=== PATIENT | female | born 1980 | race African-American/Black ===

== ENCOUNTER 2018-11-03 10:59 | Emergency (ER) | payer OTHER ==
[2018-11-03 11:04] VITALS: BMI 34.2
[2018-11-03] MEDS ORDERED: ACETAMINOPHEN 1000 MG/100 ML VIAL (NON FORMULARY) IVPB ONE (12:24)
[2018-11-03] MEDS ORDERED: ACETAMINOPHEN INJECTION 100 ML IVPB ONE (12:31)
[2018-11-03 12:55] LABS: BASO % 0.8 % (0-2.0); HEMATOCRIT 39.7 % (32.4-45.2); HEMOGLOBIN 13.2 GM/dL (10.7-15.3); LYMPH % 43.9 % (8-40); MCH 29.6 pg (25.7-33.7); MCHC 33.2 g/dl (32.0-36.0); MEAN CELL VOLUME 89.2 fl (80-96); MEAN PLT VOLUME 7.6 fl (7.5-11.1); MONO % 11.5 % (3.8-10.2); NEUT % 39.8 % (42.8-82.8); PLATELET COUNT 297 K/MM3 (134-434); RBC 4.45 M/mm3 (3.60-5.2); RDW 14.3 % (11.6-15.6); WHITE BLOOD COUNT 6.1 K/mm3 (4.0-10.0)
[2018-11-03 13:16] LABS: EPI CELLS 7.2 /HPF (0-5/HPF); HYALINE CASTS 0 /lpf (0-8); PH,URINE >= 9.0 (5.0-8.0); URINE APPEARANCE CLEAR; URINE BACTERIA 193.4 /hpf (NEGATIVE); URINE BILIRUBIN NEGATIVE (NEGATIVE); URINE COLOR YELLOW; URINE GLUCOSE (UA) NEGATIVE (NEGATIVE); URINE KETONE NEGATIVE (NEGATIVE); URINE LEUK ESTERASE 2+ (NEGATIVE); URINE NITRITE NEGATIVE (NEGATIVE); URINE PROTEIN NEGATIVE (NEGATIVE); URINE RBC 1 /hpf (0-4); URINE UROBILINOGEN 0.2 mg/dL (0.2-1.0); URINE WBC 4 /hpf (0-5)
[2018-11-03 13:24] LABS: ALBUMIN 3.7 g/dl (3.4-5.0); BILIRUBIN,TOTAL 0.4 mg/dL (0.2-1); BLOOD UREA NITROGEN 12.4 mg/dL (7-18); CALCIUM 8.7 mg/dL (8.5-10.1); CREATININE 0.7 mg/dL (0.55-1.3); POTASSIUM 4.3 mmol/L (3.5-5.1); TOT PROT 7.2 g/dl (6.4-8.2)
[2018-11-03 13:25] LABS: MAGNESIUM 2.6 mg/dL (1.8-2.4)
--- NOTE | 2018-11-03 13:56 | PDOC ---
Documentation entered by Georgina Baird SCRIBE, acting as scribe for Nikkie Arias MD. Nikkie Arias MD: This documentation has been prepared by the Oli monroe Xhesika, SCRIBE, under my direction and personally reviewed by me in its entirety. I confirm that the documentation accurately reflects all work, treatment, procedures, and medical decision making performed by me. History of Present Illness - General Chief Complaint: Blood Pressure Problem Stated Complaint: HEADACHE History Source: Patient Exam Limitations: No Limitations - History of Present Illness Initial Comments: 11/03/18 12:28 The patient is a 37 year old female, with a significant past medical history of asthma and anemia (only while 3yrs ago) who presents to the ED with headache and chest pressure since this morning. The patient describes her headache as a gradual onset, pressure like, tingling sensation at the top of her head. She states she woke up with the headache this morning and states in addition to the chest pressure, she has had similar headaches and chest pressure on and off for many months, possibly more than a year. She reports the chest pressure is not exertional and occurs at rest and while walking. Patient states she has been having high blood pressure for the past 3 years since her son was born. Patient saw her PRODUCTION WEIGHER on Thursday and her BP was 165/105. Her OB- ANTIQUE DEALER told her she could have a stroke and this is what prompted her to come in to the ED today when she had some time. She notes a similar blood pressure read every time she has a physical at Dr. Van's office for the last 3 years but has not been started on BP meds as she had been advised to "watch and wait." The patient notes she has a family history of HTN in both parents. Patient notes she recently drove back from [place] and noticed that the tops of her feet were swollen, but this improved when she elevated her legs and is not present currently. The patient denies shortness of breath. Denies visual sxs, focal weakness/ numbness. Denies fever, chills, cough, nausea, vomiting, diarrhea and constipation. Denies dysuria, frequency, urgency and hematuria. Allergies: penicillins, late, melon, shellfish derived, natural rubber PCP: Dr. Van Past History - Past Medical History Allergies/Adverse Reactions: Allergies Allergy/AdvReac Type Severity Reaction Status Date / Time melon Allergy Itching Verified 11/03/18 11:04 Penicillins Allergy Hives Verified 11/03/18 11:04 shellfish derived Allergy Hives Verified 11/03/18 11:04 Latex, Natural Rubber AdvReac Intermediate Verified 11/03/18 11:04 Home Medications: Ambulatory Orders Vit/Iron Fum/Folic AC [ Tablet] 1 each PO DAILY 05/27/15 Asthma: No Cancer: No Cardiac Disorders: No COPD: No Diabetes: No HTN: No Seizures: No Thyroid Disease: No - Suicide/Smoking/Psychosocial Hx Smoking History: Never smoked Hx Alcohol Use: No Drug/Substance Use Hx: No Substance Use Type: None Hx Substance Use Treatment: No Review of Systems - Review of Systems Able to Perform ROS?: Yes Comments:: 11/03/18 12:29 GENERAL/CONSTITUTIONAL: No fever or chills. No weakness. HEAD, EYES, EARS, NOSE AND THROAT: No change in vision. No ear pain or discharge. No sore throat. GASTROINTESTINAL: No nausea, vomiting, diarrhea or constipation. GENITOURINARY: No dysuria, frequency, or change in urination. CARDIOVASCULAR: (+) chest pressure. No shortness of breath. RESPIRATORY: No cough, wheezing, or hemoptysis. MUSCULOSKELETAL: No joint or muscle swelling or pain. No neck or back pain. SKIN: No rash NEUROLOGIC: (+) headache. (+) dizziness. No vertigo, loss of consciousness, or change in strength/sensation. ENDOCRINE: No increased thirst. No abnormal weight change. HEMATOLOGIC/LYMPHATIC: No anemia, easy bleeding, or history of blood clots. ALLERGIC/IMMUNOLOGIC: No hives or skin allergy. *Physical Exam - Vital Signs Last Vital Signs Temp Pulse Resp BP Pulse Ox 98.3 F 102 H 20 157/115 H 99 11/03/18 11:00 11/03/18 11:00 11/03/18 11:00 11/03/18 11:00 11/03/18 11:00 - Physical Exam Comments: 11/03/18 12:30 GENERAL: Awake, alert, and fully oriented, in no acute distress HEAD: No signs of trauma EYES: PERRLA, EOMI, sclera anicteric, conjunctiva clear ENT: Auricles normal inspection, hearing grossly normal, nares patent, oropharynx clear without exudates. Moist mucosa NECK: Normal ROM, supple, no lymphadenopathy, JVD, or masses LUNGS: Breath sounds equal, clear to auscultation bilaterally. No wheezes, and no crackles HEART: Regular rate and rhythm, normal S1 and S2, no murmurs, rubs or gallops ABDOMEN: Soft, nontender, normoactive bowel sounds. No guarding, no rebound. No masses EXTREMITIES: Normal range of motion, no edema. No clubbing or cyanosis. No cords , erythema, or tenderness BACK: No midline spinal tenderness in cervical/thoracic/lumbar region NEUROLOGICAL: Normal speech, cranial nerves intact, negative pronator drift, 5/ 5 strength in all 4 extremities, normal sensation to light touch in all 4 extremities, normal cerebellar exam, normal gait, normal reflexes and tone SKIN: Warm, Dry, normal turgor, no rashes or lesions noted. Heart Score/ECG Review - History History: Slightly suspicious - Electrocardiogram EKG: Normal - Age Age: </= 45 - Risk Factors Based on the list above the patient has:: 1-2 risk factors - Troponin Troponin: </= normal limit - Score Heart Score - Total: 1 #1 11/03/18 13:52 Twelve-lead EKG was performed and reviewed by me. Normal sinus rhythm, rate 93. Normal axis and intervals. No ST elevations or T-wave inversions. ED Treatment Course - LABORATORY CBC & Chemistry Diagram: 11/03/18 12:33 11/03/18 12:33 - Medications Given in the ED: ED Medications Discontinued Medications Generic Name Dose Route Start Last Admin Trade Name Kely PRN Reason Stop Dose Admin Acetaminophen 1,000 mg 11/03/18 12:24 11/03/18 12:51 Ofirmev Injection - IVPB 11/03/18 12:25 1,000 mg ONCE ONE Administration Medical Decision Making - Medical Decision Making 11/03/18 13:53 37yo F presents to the ED with elevated BP as well as headache and chest pressure intermittently BP is elevated, similar to pt's reported values from previous healthcare visits. Exam wnl, EKG is non ischemic Likely hypertensive urgency, however, will obtain labs, UA, EKG, CTH to r/o end- organ damage Heart score is low as pt has minimal risk factors and denies family hx of cardiac disease. 11/03/18 17:54 All labs including trop x2 negative CTH negative BP improved w/o intervention to 132/90 while pt was sleeping, however still likely has essential hypertension Case discussed with Dr. Carlin from cardiology who reviewed her labs, EKG Plan to start pt on HCTZ 25mg daily and pt will f/u with Dr. Carlin within 1 week She will use a BP machine to check her BP before she starts the HCTZ tomorrow morning to make sure it is not <130s systolic She no longer has chest pressure or a headache and feels better She has f/u with her PMD on 11/09 as well I discussed the physical exam findings, ancillary test results and final diagnoses with the patient. I answered all of the patient's questions. The patient was satisfied with the care received and felt comfortable with the discharge plan and treatment plan. The patient will call their primary care physician within 24 hours to arrange follow-up and will return to the Emergency Department with any new, persistent or worsening symptoms. *DC/Admit/Observation/Transfer Diagnosis at time of Disposition: Hypertensive urgency - Discharge Dispostion Disposition: HOME Condition at time of disposition: Improved Decision to Admit order: No - Referrals Referrals: Nadia Purdy MD [Primary Care Provider] - - Patient Instructions Printed Discharge Instructions: DI for High Blood Pressure, How to Monitor Your Blood Pressure at Home Additional Instructions: Follow up with Dr. Van as scheduled on 11/09 to discuss this visit. Follow up with Dr. Carlin (cardiology) within 1 week to discuss this visit. Dr. Carlin and I discussed your case while you were in the emergency department. A referral is included in this packet. Take the hydrochlorothiazide 25mg in the morning daily but check your blood pressure first. As discussed, do not take the medication if the top number of your blood pressure is less than 130. Return to the emergency department if you have any new, worsening, or concerning symptoms. - Post Discharge Activity - Attestations Physician Attestion: 11/03/18 18:15 I, Dr. Nikkie Arias MD, attest that this document has been prepared under my direction and personally reviewed by me in its entirety. I further attest, that it accurately reflects all work, treatment, procedures and medical decision -making performed by me.
--- NOTE | 2018-11-03 14:22 | EKG ---
Test Reason : Blood Pressure : / mmHG Vent. Rate : 093 BPM Atrial Rate : 093 BPM P-R Int : 176 ms QRS Dur : 082 ms QT Int : 358 ms P-R-T Axes : 057 025 035 degrees QTc Int : 445 ms NORMAL SINUS RHYTHM POSSIBLE LEFT ATRIAL ENLARGEMENT BORDERLINE ECG NO PREVIOUS ECGS AVAILABLE Confirmed by IBIS DOMINGO, MITCHELL ([id number]) on 11/03/2018 2:22:11 PM Referred By: Confirmed By:MITCHELL BAUMANN MD
[2018-11-03] MEDS ORDERED: HYDROCHLOROTHIAZIDE 25 MG TABLET (FP) PO ONE ×2 (16:02→18:33)
[2018-11-03] MEDS ORDERED: HYDROCHLOROTHIAZIDE 25 MG TABLET (FP) ONE ×3 (16:20→18:39)
[2018-11-03 16:25] VITALS: TEMP 98
[2018-11-03] MEDS ORDERED: METOCLOPRAMIDE HCL INJECTION 10 MG/2 ML VIAL IVPB ONE (16:29)
[2018-11-03] MEDS ORDERED: METOCLOPRAMIDE HCL INJECTION 10 MG/2 ML VIAL ONE (16:43)
[2018-11-03 18:42] VITALS: BP 157/108; PULSE 87
== END 2018-11-03 18:42 | disposition home or self-care (01) ==
LOC: JER 10:59
PROC: 3E033NZ Introduction of Analgesics, Hypnotics, Sedatives into Peripheral Vein, Percutaneous Approach (ICD-10-PCS; principal; 2018-11-03)
PROC: 3E033GC Introduction of Other Therapeutic Substance into Peripheral Vein, Percutaneous Approach (ICD-10-PCS; 2018-11-03)
DX: I16.0 Hypertensive urgency (principal)
CPT/HCPCS: 36415; 70450-TC; 71045-TC-FY; 80053; 81003; 83735; 84484; 84703; 85025; 93005; 93010; 96374; 96375; 99283-25; J0131

== ENCOUNTER 2019-10-05 07:19 | Inpatient (IN) | payer OTHER ==
--- NOTE | 2019-10-05 07:35 | PDOC ---
Rapid Medical Evaluation Chief Complaint: Edema Time Seen by Provider: 10/05/19 07:25 Medical Evaluation: Allergies Allergy/AdvReac Type Severity Reaction Status Date / Time melon Allergy Itching Verified 10/05/19 07:25 Penicillins Allergy Hives Verified 10/05/19 07:25 shellfish derived Allergy Hives Verified 10/05/19 07:25 Latex, Natural Rubber AdvReac Intermediate Verified 10/05/19 07:25 Vital Signs Temp Pulse Resp BP Pulse Ox 98.7 F 101 H 18 123/82 98 10/05/19 07:22 10/05/19 07:22 10/05/19 07:22 10/05/19 07:22 10/05/19 07:22 10/05/19 07:25 The patient presents to the ER for facial swelling after a tooth extraction on Thursday. States she has difficulty swallowing and increased pain on the right side. She states she had her upper and lower wisdom teeth removed. Exam: abscess present to the R upper incision site Orders: defer to provider Pt to proceed to the ER for further evaluation Discharge Disposition - Diagnosis Facial swelling - Referrals Referrals: Fercho Toussaint MD [Primary Care Provider] - - Patient Instructions - Post Discharge Activity
[2019-10-05] MEDS ORDERED: HYDROmorphone HCL CARPU-JECT 2 MG/1 ML DISP.SYRIN IVPB ONE ×2 (08:11→10:37)
[2019-10-05] MEDS ORDERED: SODIUM CHLORIDE 1,000 ML IV STA (08:12)
[2019-10-05] MEDS ORDERED: HYDROmorphone HCl 2 MG/ML VIAL ONE ×2 (08:34→10:38)
--- NOTE | 2019-10-05 08:48 | PDOC ---
Documentation entered by Carmina Espinosa SCRIBE, acting as scribe for Praveen Dickerson MD. Praveen Dickerson MD: This documentation has been prepared by the Francisca monroe Brenda, SCRIBE, under my direction and personally reviewed by me in its entirety. I confirm that the documentation accurately reflects all work, treatment, procedures, and medical decision making performed by me. History of Present Illness - General Chief Complaint: Edema Stated Complaint: FACE SWELLING Time Seen by Provider: 10/05/19 07:25 History Source: Patient Exam Limitations: No Limitations - History of Present Illness Initial Comments: 10/05/19 08:10 The patient is a 38 year old female with a significant PMH of HTN (on amlodipine) and acid reflux who presents to the emergency department for evaluation of increased right facial swelling and pain s/p upper and lower tooth extraction on 10/03/19. Patient reports that she is unable to swallow without severe pain, notes is taking ibprofuen to no relief. Also reports ear pain. She also endorses feeling warm recently but is unaware of fever. Patient notes having teeth extractions done on the left side, and notes she was fine after 3 days. The patient denies chest pain, shortness of breath, headache and dizziness. Denies fever, chills, nausea, vomiting, diarrhea and constipation. Denies dysuria, frequency, urgency and hematuria. Allergies: Penicillins Past surgical history: [facility] [place] teeth extractions Social history: No reported hx of tobacco use, alcohol use or illicit drug use. Past History - Medical History Allergies/Adverse Reactions: Allergies Allergy/AdvReac Type Severity Reaction Status Date / Time melon Allergy Itching Verified 10/05/19 07:25 Penicillins Allergy Hives Verified 10/05/19 07:25 shellfish derived Allergy Hives Verified 10/05/19 07:25 Latex, Natural Rubber AdvReac Intermediate Verified 10/05/19 07:25 Home Medications: Ambulatory Orders Albuterol Sulfate Inhaler - [Ventolin Hfa Inhaler -] 1 - 2 inh PO QID PRN 10/05/19 Amlodipine Besylate [Norvasc -] 5 mg PO DAILY 10/05/19 Cetirizine HCl [24Hour Allergy] 10 mg PO DAILY 10/05/19 Clindamycin [Cleocin -] 600 mg PO Q6H 10/05/19 Fluticasone Propionate [Flovent Diskus] 250 mcg IH DAILY 10/05/19 Ibuprofen [Ibu] 800 mg PO TID PRN 10/05/19 Omeprazole 20 mg PO DAILY 10/05/19 Asthma: Yes Cancer: No Cardiac Disorders: No COPD: No Diabetes: No HTN: Yes Seizures: No Thyroid Disease: No - Psycho-Social/Smoking History Smoking History: Never smoked - Substance Abuse Hx (Audit-C & DAST Scrn) How often the patient has a drink containing alcohol: Never Score: In Men: 4 or > Positive; In Women: 3 or > Positive: 0 Screen Result (Pos requires Nsg. Audit-10AR): Negative Review of Systems - Review of Systems Able to Perform ROS?: Yes Comments:: 10/05/19 08:16 CONSTITUTIONAL: No chills, no fatigue EYES: No visual changes ENT: (+) Ear pain. no sore throat CARDIOVASCULAR: No chest pain, no palpitations RESPIRATORY: No cough, no SOB GI: No abdominal pain, no nausea, no vomiting, no constipation, no diarrhea GENITOURINARY: No dysuria, no frequency, no hematuria MUSKULOSKELETAL: (+) Right facial pain and swelling. No backpain. SKIN: No rash NEURO: No headache *Physical Exam - Vital Signs Last Vital Signs Temp Pulse Resp BP Pulse Ox 98.7 F 101 H 18 123/82 98 10/05/19 07:22 10/05/19 07:22 10/05/19 07:22 10/05/19 07:22 10/05/19 07:22 - Physical Exam 10/05/19 08:24 CONSTITUTIONAL: Well-appearing; well-nourished; in no apparent distress HEAD: Normocephalic; atraumatic EYES: PERRL; EOM intact ENMT: Significant soft tissue swelling extending from the right zygoma and infraorbital region extending to the area right submental area, with trismus, warm to touch and tender to palpation. Edema of the sublingual area is noted. There is no stridor; patient able to tolerate own secretions. Minimal dysphonia is noted. NECK: Supple; non-tender; Right anterior cervical fullness is noted, tender to palpation. No meningismus is noted. CARD: Normal S1, S2; no murmurs, rubs, or gallops RESP: Normal chest excursion with respiration; breath sounds clear and equal bilaterally; no wheezes, rhonchi, or rales ABD: Soft, non-distended; non-tender; no palpable organomegaly, no palpable hernias EXT: Normal ROM in all four extremities; non-tender to palpation; distal pulses intact SKIN: Warm, dry, no rash NEURO: No focal neurological deficiencies. ED Treatment Course - LABORATORY CBC & Chemistry Diagram: 10/05/19 08:20 10/05/19 08:20 Medical Decision Making - Medical Decision Making 10/05/19 08:47 38-year-old female with history of hypertension, status post right upper and lower wisdom teeth extraction presents with significant facial soft tissue swelling, pain, trismus and neck fullness. Differential diagnosis includes dental abscess versus Fareed's angina versus facial cellulitis. Will obtain CBC/CMP/blood cultures. Will administer IV fluids and pain meds. Will obtain CT of face and neck with IV contrast. Will reassess. 10/05/19 13:24 Patient reassessed. Patient is resting comfortably. CT of abdomen pelvis reveals significant subcutaneous edema and fluid collection without enhancement. No drainable collection is identified. No evidence of IJ or subclavian DVT is noted. Will admit for facial cellulitis for IV antibiotics. Discharge - Discharge Information Problems reviewed: Yes Clinical Impression/Diagnosis: Facial cellulitis Condition: Fair - Admission Yes - Follow up/Referral Referrals: Fercho Toussaint MD [Primary Care Provider] - - Patient Discharge Instructions - Post Discharge Activity
[2019-10-05] MEDS ORDERED: CLINDAMYCIN 600MG PREMIX IVPB 600 MG/50 ML BAG IVPB ONE ×3 (08:50→18:43)
[2019-10-05 09:06] LABS: BASO % 0.5 % (0-2.0); EOS % 1.3 % (0-4.5); HEMATOCRIT 36.7 % (32.4-45.2); HEMOGLOBIN 12.2 GM/dL (10.7-15.3); LYMPH % 10.8 % (8-40); MCH 29.6 pg (25.7-33.7); MCHC 33.3 g/dl (32.0-36.0); MEAN CELL VOLUME 88.8 fl (80-96); MEAN PLT VOLUME 8.2 fl (7.5-11.1); MONO % 8.6 % (3.8-10.2); NEUT % 78.8 % (42.8-82.8); PLATELET COUNT 314 K/MM3 (134-434); RBC 4.13 M/mm3 (3.60-5.2); RDW 13.5 % (11.6-15.6); WHITE BLOOD COUNT 14.5 K/mm3 (4.0-10.0)
[2019-10-05 09:23] LABS: INR 1.18 (0.83-1.09); PROTHROMBIN TIME (PATIENT) 13.9 SEC (9.7-13.0)
[2019-10-05 09:29] LABS: ALBUMIN 3.8 g/dl (3.4-5.0); BILIRUBIN,TOTAL 0.7 mg/dL (0.2-1); BLOOD UREA NITROGEN 8.7 mg/dL (7-18); CALCIUM 9.1 mg/dL (8.5-10.1); CREATININE 0.9 mg/dL (0.55-1.3); POTASSIUM 3.7 mmol/L (3.5-5.1); TOT PROT 7.4 g/dl (6.4-8.2)
[2019-10-05] MEDS ORDERED: ALBUTEROL SO4 0.083% IH SOL 2.5 MG/3 ML VIAL.NEB. NEB PRN (14:50)
[2019-10-05] MEDS ORDERED: ACETAMINOPHEN 325 MG TABLET (FP) PO PRN (14:56)
[2019-10-05] MEDS ORDERED: SODIUM CHLORIDE 1,000 ML IV SCH (15:00)
--- NOTE | 2019-10-05 15:19 | HP ---
CHIEF COMPLAINT: right facial swelling PCP:Dr. Toussaint HISTORY OF PRESENT ILLNESS: Patient is a 38 year old female with past medical history of HTN and GERD, presented to the ED with worsening right facial swelling after a tooth extraction 2 days ago. Patient reported she had her wisdom teeth removed, both u pper and lower teeth on the right side 2 days ago. Yesterday morning, she woke with facial swelling and pain, and started taking her antibiotics. Today, patient noted worsening of the swelling and pain on the right side of her face. She denies fevers, chills, headache, dizziness, chest pain, SOB, abdominal pain, diarrhea, urinary symptoms. ER course was notable for: (1)Soft tissue CT - soft tissue swelling along the right lateral aspect of the mandible with fluid along the lateral margin of Right maxillary ridge approx 8mm in width. No gross surrounding enhancement is identified to suggest an organized abscess/drainable collection. However superimposed infection could not be excluded. (2) (3) Recent Travel:denies PAST MEDICAL HISTORY: HTN GERD PAST SURGICAL HISTORY: none Social History: Smoking:denies Alcohol:denies Drugs: denies Allergies melon Allergy (Verified 10/05/19 07:25) Itching Penicillins Allergy (Verified 10/05/19 07:25) Hives shellfish derived Allergy (Verified 10/05/19 07:25) Hives Latex, Natural Rubber Adverse Reaction (Intermediate, Verified 10/05/19 07:25) ITCHY HOME MEDICATIONS: Home Medications Medication Instructions Recorded Albuterol Sulfate Inhaler - 1 - 2 inh PO QID PRN 10/05/19 [Ventolin Hfa Inhaler -] Amlodipine Besylate [Norvasc -] 5 mg PO DAILY 10/05/19 Cetirizine HCl [24Hour Allergy] 10 mg PO DAILY 10/05/19 Clindamycin [Cleocin -] 600 mg PO Q6H 10/05/19 Fluticasone Propionate [Flovent 250 mcg IH DAILY 10/05/19 Diskus] Ibuprofen [Ibu] 800 mg PO TID PRN 10/05/19 Omeprazole 40 mg PO DAILY 10/05/19 REVIEW OF SYSTEMS CONSTITUTIONAL: Absent: fever, chills, diaphoresis, generalized weakness, malaise, loss of appetite, weight change HEENT: right sided facial swelling Absent: rhinorrhea, nasal congestion, throat pain, throat swelling, difficulty swallowing, mouth swelling, ear pain, eye pain, visual changes CARDIOVASCULAR: Absent: chest pain, syncope, palpitations, irregular heart rate, lightheade dness, peripheral edema RESPIRATORY: Absent: cough, shortness of breath, dyspnea with exertion, orthopnea, wheezing, stridor, hemoptysis GASTROINTESTINAL: Absent: abdominal pain, abdominal distension, nausea, vomiting, diarrhea, constipation, melena, hematochezia GENITOURINARY: Absent: dysuria, frequency, urgency, hesitancy, hematuria, flank pain, genital pain MUSCULOSKELETAL: Absent: myalgia, arthralgia, joint swelling, back pain, neck pain SKIN: Absent: rash, itching, pallor HEMATOLOGIC/IMMUNOLOGIC: Absent: easy bleeding, easy bruising, lymphadenopathy, frequent infections ENDOCRINE: Absent: unexplained weight gain, unexplained weight loss, heat intolerance, cold intolerance NEUROLOGIC: Absent: headache, focal weakness or paresthesias, dizziness, unsteady gait, seizure, mental status changes, bladder or bowel incontinence PSYCHIATRIC: Absent: anxiety, depression, suicidal or homicidal ideation, hallucinations. PHYSICAL EXAMINATION Vital Signs - 24 hr 10/05/19 10/05/19 07:22 13:35 Temperature 98.7 F 98 F Pulse Rate 101 H Pulse Rate [ 92 H Right] Respiratory 18 18 Rate Blood Pressure 123/82 Blood Pressure 123/76 [Right Arm] O2 Sat by Pulse 98 99 Oximetry (%) GENERAL: Awake, alert, and fully oriented, in no acute distress. HEAD: Normal with no signs of trauma. EYES: PERRLA, EOMI, sclera anicteric, conjunctiva clear. EARS, NOSE, THROAT: Incision site on the upper right molar with minimal whitish discharge, lower molar could not be seen as patient could not open her mouth wide, dry mucous membranes. NECK: Normal range of motion, supple LUNGS: Breath sounds equal, clear to auscultation bilaterally. HEART: Regular rate and rhythm, normal S1 and S2 without murmur, rub or gallop. ABDOMEN: Soft, nontender, not distended, normoactive bowel sounds LOWER EXTREMITIES: 2+ pulses, warm, well-perfused. No peripheral edema. NEUROLOGICAL: Cranial nerves II-XII intact. Normal speech. Normal gait. PSYCHIATRIC: Cooperative. Good eye contact. Appropriate mood and affect. SKIN: Warm, dry, normal turgor Laboratory Results - last 24 hr 10/05/19 10/05/19 10/05/19 08:20 08:20 08:20 WBC 14.5 H RBC 4.13 Hgb 12.2 Hct 36.7 MCV 88.8 MCH 29.6 MCHC 33.3 RDW 13.5 Plt Count 314 MPV 8.2 Absolute Neuts (auto) 11.4 H Neutrophils % 78.8 D Lymphocytes % 10.8 D Monocytes % 8.6 Eosinophils % 1.3 Basophils % 0.5 Nucleated RBC % 0 PT with INR 13.90 H INR 1.18 H Sodium Potassium Chloride Carbon Dioxide Anion Gap BUN Creatinine Est GFR (CKD-EPI)AfAm Est GFR (CKD-EPI)NonAf Random Glucose Calcium Total Bilirubin AST ALT Alkaline Phosphatase Total Protein Albumin Serum , Qual Negative 10/05/19 08:20 WBC RBC Hgb Hct MCV MCH MCHC RDW Plt Count MPV Absolute Neuts (auto) Neutrophils % Lymphocytes % Monocytes % Eosinophils % Basophils % Nucleated RBC % PT with INR INR Sodium 142 Potassium 3.7 Chloride 108 H Carbon Dioxide 22 Anion Gap 12 BUN 8.7 Creatinine 0.9 Est GFR (CKD-EPI)AfAm 93.35 Est GFR (CKD-EPI)NonAf 80.54 Random Glucose 102 Calcium 9.1 Total Bilirubin 0.7 AST 12 L ALT 16 Alkaline Phosphatase 66 Total Protein 7.4 Albumin 3.8 Serum , Qual ASSESSMENT/PLAN: Patient is a 38 year old female with past medical history of HTN and GERD, presented to the ED with worsening right facial swelling after a tooth extraction 2 days ago. #Right facial swelling -possibly 2/2 facial cellulitis, vs inflammation s/p tooth extraction -Soft tissue CT - soft tissue swelling along the right lateral aspect of the mandible with fluid along the lateral margin of Right maxillary ridge approx 8mm in width. No gross surrounding enhancement is identified to suggest an organized abscess/drainable collection. However superimposed infection could not be excluded. -Will continue IV Clindamycin 800 mg q8h -Toradol prn for pain -leukocytosis, likely reactive vs 2/2 infection, will monitor #HTN -Continue Amlodipine 5mg daily #GERD -Continue Omeprazole 40mg daily #FEN -Not on any standing fluids -Electrolytes wnl, routine bmp monitoring -Soft diet #Prophylaxis -Lovenox 40mg sq daily #Disposition -full code -admit to med surg Visit type - Emergency Visit Emergency Visit: Yes ED Registration Date: 10/05/19 Care time: The patient presented to the Emergency Department on the above date and was hospitalized for further evaluation of their emergent condition. - New Patient This patient is new to me today: Yes Date on this admission: 10/05/19 - Critical Care Critical Care patient: No ATTENDING PHYSICIAN STATEMENT I saw and evaluated the patient. I reviewed the resident's note and discussed the case with the resident. I agree with the resident's findings and plan as documented. SUBJECTIVE: OBJECTIVE: ASSESSMENT AND PLAN:
--- NOTE | 2019-10-05 15:44 | PN ---
Teaching Attending Note Name of Resident: Marguerite Buck ATTENDING PHYSICIAN STATEMENT I saw and evaluated the patient. I reviewed the resident's note and discussed the case with the resident. I agree with the resident's findings and plan as documented. SUBJECTIVE: 38 y/o female with asthma, htn, gerd s/p right upper and lower impacted wisdom teeth on thursday presents with swollen right face with pain and trouble swallowing. Pt states there were not any complications during proceure, was not placed on any post procedure prophylaxis abx. Pt deneis any fevers, chills, n/v No other recent illnesses PMHX: as above, gestational htn PSHX: none Meds: Omeprazole, flovent, proventil, amlodipine 5mg daily Allergies: pCN Social Hx: occ alcohol, denies any tobacco or drug use Family Hx; non contributory to current case OBJECTIVE: Vital Signs Temperature 98 F 10/05/19 13:35 Pulse Rate 92 H 10/05/19 13:35 Respiratory Rate 18 10/05/19 13:35 Blood Pressure 123/76 10/05/19 13:35 O2 Sat by Pulse Oximetry (%) 99 10/05/19 13:35 Gen: Pt a and o, nad HEENT: extremely edematous and warm right face, no stridoe, posterior right area of extraction with some purulent discharge, no active bleeding Neck: supple CV: POs S1, S2, RRR Chest: CTA ALEISHA Abd: obese, soft, nt ,nd pos bs Ext: no c/c/e/ Skin: warmt to touch right face, no other rashes labs CBC,CMP WBC 14.5 K/mm3 (4.0-10.0) H 10/05/19 08:20 RBC 4.13 M/mm3 (3.60-5.2) 10/05/19 08:20 Hgb 12.2 GM/dL (10.7-15.3) 10/05/19 08:20 Hct 36.7 % (32.4-45.2) 10/05/19 08:20 MCV 88.8 fl (80-96) 10/05/19 08:20 MCH 29.6 pg (25.7-33.7) 10/05/19 08:20 MCHC 33.3 g/dl (32.0-36.0) 10/05/19 08:20 RDW 13.5 % (11.6-15.6) 10/05/19 08:20 Plt Count 314 K/MM3 (134-434) 10/05/19 08:20 MPV 8.2 fl (7.5-11.1) 10/05/19 08:20 Absolute Neuts (auto) 11.4 K/mm3 (1.5-8.0) H 10/05/19 08:20 Neutrophils % 78.8 % (42.8-82.8) D 10/05/19 08:20 Lymphocytes % 10.8 % (8-40) D 10/05/19 08:20 Monocytes % 8.6 % (3.8-10.2) 10/05/19 08:20 Eosinophils % 1.3 % (0-4.5) 10/05/19 08:20 Basophils % 0.5 % (0-2.0) 10/05/19 08:20 Nucleated RBC % 0 % (0-0) 10/05/19 08:20 Sodium 142 mmol/L (136-145) 10/05/19 08:20 Potassium 3.7 mmol/L (3.5-5.1) 10/05/19 08:20 Chloride 108 mmol/L (98-107) H 10/05/19 08:20 Carbon Dioxide 22 mmol/L (21-32) 10/05/19 08:20 Anion Gap 12 MMOL/L (8-16) 10/05/19 08:20 BUN 8.7 mg/dL (7-18) 10/05/19 08:20 Creatinine 0.9 mg/dL (0.55-1.3) 10/05/19 08:20 Est GFR (CKD-EPI)AfAm 93.35 10/05/19 08:20 Est GFR (CKD-EPI)NonAf 80.54 10/05/19 08:20 Random Glucose 102 mg/dL (74-106) 10/05/19 08:20 Calcium 9.1 mg/dL (8.5-10.1) 10/05/19 08:20 Total Bilirubin 0.7 mg/dL (0.2-1) 10/05/19 08:20 AST 12 U/L (15-37) L 10/05/19 08:20 ALT 16 U/L (13-61) 10/05/19 08:20 Alkaline Phosphatase 66 U/L (45-117) 10/05/19 08:20 Total Protein 7.4 g/dl (6.4-8.2) 10/05/19 08:20 Albumin 3.8 g/dl (3.4-5.0) 10/05/19 08:20 Serum , Qual Negative 10/05/19 08:20 CT: no abscess, right mandibular soft tissue edema RUE doppler - no dvt ASSESSMENT AND PLAN: 38 y/o female with above med hx admitted with right facial cellulitis post extraction of right upper and lower wisdom teeth *Right facial cellulitis with leukocytosis resp status is stable IV clinda no abscess on ct pain control nsaids for swelling *asthma - ventolin as needed *htn - restart home med, norvasc *dvt prophy - lovenox or sq heparin Problem List - Problems (1) Facial cellulitis Code(s): L03.211 - CELLULITIS OF FACE
[2019-10-05] MEDS ORDERED: KETOROLAC TROMETHAMINE 15 MG/ML VIAL ONE (16:27)
[2019-10-05] MEDS: KETOROLAC TROMETHAMINE 15 MG/ML VIAL IVPUSH PRN ×2 (16:33→23:04)
[2019-10-05] MEDS: CLINDAMYCIN 600MG PREMIX IVPB 600 MG/50 ML BAG IVPB SCH (18:42)
[2019-10-05] MEDS ORDERED: MOMETASONE FUROATE 220 MCG/IH INHALER IH SCH (22:00)
[2019-10-05 22:50] VITALS: BMI 34.1
[2019-10-06] MEDS: CLINDAMYCIN 600MG PREMIX IVPB 600 MG/50 ML BAG IVPB SCH ×2 (03:56→09:42)
[2019-10-06] MEDS: KETOROLAC TROMETHAMINE 15 MG/ML VIAL IVPUSH PRN ×2 (04:14→10:43)
[2019-10-06 07:36] LABS: BASO % 0.3 % (0-2.0); EOS % 1.3 % (0-4.5); HEMATOCRIT 32.5 % (32.4-45.2); HEMOGLOBIN 10.7 GM/dL (10.7-15.3); LYMPH % 18.8 % (8-40); MCH 29.3 pg (25.7-33.7); MEAN CELL VOLUME 88.8 fl (80-96); MEAN PLT VOLUME 7.6 fl (7.5-11.1); MONO % 10.1 % (3.8-10.2); NEUT % 69.5 % (42.8-82.8); PLATELET COUNT 293 K/MM3 (134-434); RBC 3.66 M/mm3 (3.60-5.2); RDW 13.7 % (11.6-15.6); WHITE BLOOD COUNT 12.3 K/mm3 (4.0-10.0)
[2019-10-06 07:58] LABS: BILIRUBIN,TOTAL 0.5 mg/dL (0.2-1); BLOOD UREA NITROGEN 6.2 mg/dL (7-18); CALCIUM 8.3 mg/dL (8.5-10.1); CREATININE 0.7 mg/dL (0.55-1.3); MAGNESIUM 2.5 mg/dL (1.8-2.4); PHOSPHOROUS 3.1 mg/dL (2.5-4.9); POTASSIUM 3.4 mmol/L (3.5-5.1); TOT PROT 6.5 g/dl (6.4-8.2)
[2019-10-06] MEDS ORDERED: ENOXAPARIN NA (PORCINE) 40 MG/0.4 ML DISP.SYRIN SQ SCH (10:00)
[2019-10-06] MEDS ORDERED: amLODIPine BESYLATE 5 MG TABLET (FP) PO SCH (10:00)
[2019-10-06] MEDS ORDERED: PANTOPRAZOLE 40 MG TABLET PO SCH (10:00)
[2019-10-06] MEDS ORDERED: POTASSIUM CHLORIDE ORAL LIQUID 20 MEQ/15 ML PO ONE (11:00)
[2019-10-06 14:02] VITALS: BP 124/72; PULSE 96; TEMP 98.5
--- NOTE | 2019-10-06 18:54 | DS ---
Physical Exam: SUBJECTIVE: Patient seen and examined OBJECTIVE: Vital Signs Period Temp Pulse Resp BP Sys/Patrick Pulse Ox Last 24 Hr 98.2 F-99.5 F 90-104 18-20 120-143/72-92 98-100 PHYSICAL EXAM GENERAL: Awake, alert, and fully oriented, in no acute distress. HEAD: Normal with no signs of trauma. EYES: PERRLA, EOMI, sclera anicteric, conjunctiva clear. EARS, NOSE, THROAT: Incision site on the upper and lower right molars with minimal whitish discharge, right facial swelling much improved NECK: Normal range of motion, supple LUNGS: Breath sounds equal, clear to auscultation bilaterally. HEART: Regular rate and rhythm, normal S1 and S2 without murmur, rub or gallop. ABDOMEN: Soft, nontender, not distended, normoactive bowel sounds LOWER EXTREMITIES: 2+ pulses, warm, well-perfused. No peripheral edema. NEUROLOGICAL: Cranial nerves II-XII intact. Normal speech. Normal gait. PSYCHIATRIC: Cooperative. Good eye contact. Appropriate mood and affect. SKIN: Warm, dry, normal turgor LABS Laboratory Results - last 24 hr 10/05/19 10/06/19 10/06/19 13:00 06:35 06:35 WBC 12.3 H RBC 3.66 Hgb 10.7 Hct 32.5 MCV 88.8 MCH 29.3 MCHC 33.0 RDW 13.7 Plt Count 293 MPV 7.6 Absolute Neuts (auto) 8.6 H Neutrophils % 69.5 Lymphocytes % 18.8 D Monocytes % 10.1 Eosinophils % 1.3 Basophils % 0.3 Nucleated RBC % 0 Sodium 140 Potassium 3.4 L Chloride 108 H Carbon Dioxide 26 Anion Gap 6 L BUN 6.2 L Creatinine 0.7 Est GFR (CKD-EPI)AfAm 126.49 Est GFR (CKD-EPI)NonAf 109.14 Random Glucose 90 Hemoglobin A1c % Calcium 8.3 L Phosphorus 3.1 Magnesium 2.5 H Total Bilirubin 0.5 AST 10 L ALT 12 L Alkaline Phosphatase 59 Total Protein 6.5 Albumin 3.0 L COVID-19 (MARYANN) Not detected 10/06/19 06:35 WBC RBC Hgb Hct MCV MCH MCHC RDW Plt Count MPV Absolute Neuts (auto) Neutrophils % Lymphocytes % Monocytes % Eosinophils % Basophils % Nucleated RBC % Sodium Potassium Chloride Carbon Dioxide Anion Gap BUN Creatinine Est GFR (CKD-EPI)AfAm Est GFR (CKD-EPI)NonAf Random Glucose Hemoglobin A1c % 6.1 Calcium Phosphorus Magnesium Total Bilirubin AST ALT Alkaline Phosphatase Total Protein Albumin COVID-19 (MARYANN) HOSPITAL COURSE: Date of Admission:10/05/19 Date of Discharge: 10/06/19 Patient is a 38 year old female with past medical history of HTN and GERD, presented to the ED with worsening right facial swelling after a tooth extraction 2 days ago. Patient received IV Clindamycin and IV Toradol and swelling and pain improved throughout hospital stay. Soft tissue CT - soft tissue swelling along the right lateral aspect of the mandible with fluid along the lateral margin of Right maxillary ridge approx 8mm in width. No gross surrounding enhancement is identified to suggest an organized abscess/drainable collection. Patient was discharged with instruction to continue Clindamycin and to take ibuprofen for pain. And to follow up with her dentist. Minutes to complete discharge: 36 Discharge Summary Problems reviewed: Yes Reason For Visit: CELLULITIS OF FACE Condition: Improved - Instructions Diet, Activity, Other Instructions: Your visit You were admitted to the hospital because you had facial swelling. This was likely an inflammatory reaction from the tooth extraction. You were given antibiotics and anti-inflammatory medication and the swelling improved. Please continue the medications as prescribed below, you may apply a heating pad or moist heat compress to bring the swelling down, and follow up with your dentist. Medications Please take the following medications as prescribed: 1. Clindamycin 600mg (take 2 pills of 300mg capsule) three times a day for 6 more days. 2. You may take Ibuprofen every 8 hours as needed for pain/swelling. Follow up Please follow up with your primary care doctor in 1 week. Please follow up with your dentist as scheduled. Additional info Please call 911 or go to the ED if with any worsening fevers, chills, headache, dizziness, chest pain, shortness of breath, belly pain or any new concerns noted. Referrals: Fercho Toussaint MD [Primary Care Provider] - Disposition: HOME - Home Medications Comprehensive Discharge Medication List: Ambulatory Orders Albuterol Sulfate Inhaler - [Ventolin HFA Inhaler -] 1 - 2 inh PO QID PRN 10/05/19 Amlodipine Besylate [Norvasc -] 5 mg PO DAILY 10/05/19 Cetirizine HCl [24Hour Allergy] 10 mg PO DAILY 10/05/19 Fluticasone Propionate [Flovent Diskus] 250 mcg IH DAILY 10/05/19 Omeprazole 40 mg PO DAILY 10/05/19 Clindamycin [Cleocin -] 600 mg PO TID #24 cap 10/06/19 Ibuprofen [Ibu] 800 mg PO TID PRN #15 tablet 10/06/19 This patient is new to me today: No Emergency Visit: Yes ED Registration Date: 10/05/19 Care time: The patient presented to the Emergency Department on the above date and was hospitalized for further evaluation of their emergent condition. Critical Care patient: No - Discharge Referral Referred to [facility] No ATTENDING PHYSICIAN STATEMENT I saw and evaluated the patient. I reviewed the resident's note and discussed the case with the resident. I agree with the resident's findings and plan as documented. SUBJECTIVE: OBJECTIVE: ASSESSMENT AND PLAN:
--- NOTE | 2019-10-07 13:40 | PN ---
Teaching Attending Note Name of Resident: Marguerite Buck ATTENDING PHYSICIAN STATEMENT I saw and evaluated the patient. I reviewed the resident's note and discussed the case with the resident. I agree with the resident's findings and plan as documented. SUBJECTIVE: Patient seen and examined at bedside, admitted for swelling of R face following wisdom tooth extraction (#1), endorses similar episode of #16 extraction but not to this extent. CT not showing abscess just soft tissue swelling, stable for DC w/ NSAIDs and abx and follow up w/ dentist. VSS. OBJECTIVE: GA AAox3, speaking in full sentences, NAD, ambulating around room HEENT: swelling of R side of face, no erythema, mildly warm to touch as compared to L side of face, no involvement of EOM, EOMI, able to open jaw slightly cannot visualize inside of mouth, neck supple, no stridor or increased WOB. CV: S1, S2+, RRR Chest: CTAb, no crackles or wheezing, no increased WOB Abd: obese, soft, nt , ND, BS+ Ext: No LE edema, no calf tenderness, moves all 4 ext. Skin: slightly warm to touch right face, no other rashes Vital Signs (72 hours) 10/05/19 10/05/19 10/05/19 07:22 13:35 19:15 Temperature 98.7 F 98 F 99.0 F Pulse Rate 101 H Pulse Rate [ 92 H 99 H Right] Respiratory 18 18 18 Rate Blood Pressure 123/82 Blood Pressure 123/76 143/92 [Right Arm] O2 Sat by Pulse 98 99 100 Oximetry (%) 10/05/19 10/05/19 10/05/19 21:00 21:55 21:58 Temperature 98.5 F 98.5 F Pulse Rate 102 H 102 H Pulse Rate [ Right] Respiratory 18 20 20 Rate Blood Pressure 124/80 124/80 Blood Pressure [Right Arm] O2 Sat by Pulse 100 99 99 Oximetry (%) 10/06/19 10/06/19 10/06/19 06:00 06:48 09:00 Temperature 99.5 F Pulse Rate 104 H Pulse Rate [ Right] Respiratory 20 20 Rate Blood Pressure 132/86 Blood Pressure [Right Arm] O2 Sat by Pulse 100 98 Oximetry (%) 10/06/19 10/06/19 10/06/19 10:00 14:00 14:48 Temperature 98.2 F 98.5 F Pulse Rate 90 96 H Pulse Rate [ Right] Respiratory 20 20 20 Rate Blood Pressure 120/72 124/72 Blood Pressure [Right Arm] O2 Sat by Pulse 98 98 98 Oximetry (%) Microbiology 10/05/19 08:30 Blood - Peripheral Venous Blood Culture - Preliminary NO GROWTH OBTAINED AFTER 48 HOURS, INCUBATION TO CONTINUE FOR 3 DAYS. 10/05/19 08:30 Blood - Peripheral Venous Blood Culture - Preliminary NO GROWTH OBTAINED AFTER 48 HOURS, INCUBATION TO CONTINUE FOR 3 DAYS. Laboratory Results - last 24 hr 10/06/19 06:35 Hemoglobin A1c % 6.1 Home Medications Medication Instructions Recorded Albuterol Sulfate Inhaler - 1 - 2 inh PO QID PRN 10/05/19 [Ventolin HFA Inhaler -] Amlodipine Besylate [Norvasc -] 5 mg PO DAILY 10/05/19 Cetirizine HCl [24Hour Allergy] 10 mg PO DAILY 10/05/19 Fluticasone Propionate [Flovent 250 mcg IH DAILY 10/05/19 Diskus] Omeprazole 40 mg PO DAILY 10/05/19 Clindamycin [Cleocin -] 600 mg PO TID #24 cap 10/06/19 Ibuprofen [Ibu] 800 mg PO TID PRN #15 tablet 10/06/19 ASSESSMENT AND PLAN: 38 F R facial swelling following #1 tooth extraction HTN Asthma Obesity Plan: Cont. warm/cold compresses, NSAIDs, Tylenol for pain Clindamycin 600mg Q8H x1 week Soft diet, liquid diet as tolerated Counseled patient on avoidance of using staw/sucking to avoid dry socket Counseled patient if fever/chills/neck pain/facial pain/ALICEA/SOB/CP happens to return to ED immediately Follow up with dentist and PCP
== END 2019-10-06 16:30 | disposition home or self-care (01) | DRG 383 ==
LOC: JER 07:19 → JERBED 13:58 → J8W 20:39
PROVIDERS: ADMIT Internal Medicine
DX: L03.211 Cellulitis of face (principal); K21.9 Gastro-esophageal reflux disease without esophagitis; J45.909 Unspecified asthma, uncomplicated; I10 Essential (primary) hypertension; D72.829 Elevated white blood cell count, unspecified; E66.9 Obesity, unspecified; Z68.34 Body mass index [BMI] 34.0-34.9, adult
CPT/HCPCS: 36415; 70491-TC; 80053; 83036; 83735; 84100; 84703; 85025; 85610; 87040; 93971; 99285-25; Q9967; U0003

== ENCOUNTER 2021-04-21 12:44 | Emergency (ER) | payer OTHER ==
[2021-04-21 12:48] VITALS: BP 163/93; PULSE 97; TEMP 97.7; BMI 35.7
== END 2021-04-21 14:37 | disposition home or self-care (01) ==
LOC: JER 12:44
DX: R51.9 Headache, unspecified (principal); I10 Essential (primary) hypertension
CPT/HCPCS: 70450-TC; 99284-25

== ENCOUNTER 2021-11-24 18:04 | Emergency (ER) | payer OTHER ==
[2021-11-24 18:15] VITALS: BP 154/93; PULSE 79; RESP 18; TEMP 98; BMI 35.2
[2021-11-24] MEDS ORDERED: FAMOTIDINE 20 MG/50 ML IVPB 20 MG/50 ML MG IVPB ONE (19:25)
[2021-11-24] MEDS ORDERED: MAG HYDROX/AL HYDROX/SIMETH -MYLANTA- ORAL SUSPENSION PO ONE (19:25)
[2021-11-24] MEDS ORDERED: FAMOTIDINE 20 MG TABLET PO ONE (19:33)
[2021-11-24] MEDS ORDERED: MAG HYDROX/AL HYDROX/SIMETH 30 ML UNIT-DOSE CUP ONE (19:47)
[2021-11-24] MEDS ORDERED: FAMOTIDINE 20 MG TABLET ONE (19:47)
[2021-11-24 20:17] LABS: BASO % 0.4 % (0-2.0); EOS % 1.8 % (0-4.5); HEMATOCRIT 37.6 % (32.4-45.2); HEMOGLOBIN 12.9 GM/dL (10.7-15.3); LYMPH % 30.5 % (8-40); MCH 29.9 pg (25.7-33.7); MCHC 34.3 g/dl (32.0-36.0); MEAN CELL VOLUME 87.3 fl (80-96); MEAN PLT VOLUME 7.5 fl (7.5-11.1); MONO % 6.7 % (3.8-10.2); NEUT % 60.6 % (42.8-82.8); PLATELET COUNT 346 10^3/uL (134-434); RBC 4.31 M/mm3 (3.60-5.2); RDW 14.4 % (11.6-15.6); WHITE BLOOD COUNT 10.4 K/mm3 (4.0-10.0)
[2021-11-24 20:34] LABS: ALBUMIN 3.6 g/dl (3.4-5.0); BLOOD UREA NITROGEN 15.6 mg/dL (7-18); CALCIUM 9.3 mg/dL (8.5-10.1)
[2021-11-24 20:37] LABS: CREATININE 0.9 mg/dL (0.55-1.3)
[2021-11-24 20:39] LABS: BILIRUBIN,TOTAL 0.4 mg/dL (0.2-1); TOT PROT 7.2 g/dl (6.4-8.2)
== END 2021-11-24 21:38 | disposition home or self-care (01) ==
LOC: JER 18:04
DX: R10.13 Epigastric pain (principal)
CPT/HCPCS: 36415; 80053; 83690; 84703; 85025; 99283-25

== ENCOUNTER 2024-01-09 13:38 | Emergency (ER) | payer OTHER ==
[2024-01-09 13:53] VITALS: BP 137/82; PULSE 93; RESP 18; TEMP 97.9; BMI 34.0
[2024-01-09] MEDS ORDERED: KETOROLAC TROMETHAMINE 30 MG/1 ML VIAL ONE (15:08)
[2024-01-09] MEDS ORDERED: FAMOTIDINE 10 MG TABLET ONE (15:08)
[2024-01-09] MEDS: KETOROLAC TROMETHAMINE 30 MG/1 ML VIAL IM ONE (15:24)
[2024-01-09] MEDS: FAMOTIDINE 10 MG TABLET PO ONE (15:24)
== END 2024-01-09 15:43 | disposition home or self-care (01) ==
LOC: JERFT 13:38 → JER 13:38 → JERFT 15:43
PROC: 3E0133Z Introduction of Anti-inflammatory into Subcutaneous Tissue, Percutaneous Approach (ICD-10-PCS; principal; 2024-01-09)
DX: M54.6 Pain in thoracic spine (principal); M25.511 Pain in right shoulder; M25.512 Pain in left shoulder; V49.40XA Driver injured in collision with unspecified motor vehicles in traffic accident, initial encounter
CPT/HCPCS: 99284-25

== ENCOUNTER 2024-11-28 13:30 | Emergency (ER) | payer OTHER ==
[2024-11-28 13:45] VITALS: TEMP 97.7; BMI 34.3
[2024-11-28 14:48] LABS: EPI CELLS >36 /uL (0-25.1); HYALINE CASTS 0 /uL (0-3.1); URINE APPEARANCE CLOUDY; URINE BACTERIA 470 /uL (0-1359); URINE BILIRUBIN NEGATIVE (NEGATIVE); URINE COLOR YELLOW; URINE GLUCOSE (UA) 1+ (NEGATIVE); URINE KETONE NEGATIVE (NEGATIVE); URINE LEUK ESTERASE 1+ (NEGATIVE); URINE NITRITE NEGATIVE (NEGATIVE); URINE PROTEIN TRACE (NEGATIVE); URINE RBC 17 /uL (0-23.9); URINE UROBILINOGEN 0.2 mg/dL (0.2-1.0); URINE WBC 93 /uL (0-25.8)
[2024-11-28 16:53] VITALS: BP 150/84; PULSE 84; RESP 16
== END 2024-11-28 16:53 | disposition home or self-care (01) ==
LOC: JER 13:30
DX: R10.2 Pelvic and perineal pain (principal); R35.0 Frequency of micturition; M54.9 Dorsalgia, unspecified
CPT/HCPCS: 74176-TC; 81003; 84703; 99284-25